=== PATIENT | male | born 1995 | race Caucasian/White ===

== ENCOUNTER 2020-11-22 10:57 | Emergency (ER) | payer OTHER ==
[2020-11-22 11:55] LABS: HEMOGLOBIN 16.9 gm/dl (14.0-17.5); RED BLOOD COUNT 5.98 M/UL (4.20-5.50); WHITE BLOOD COUNT 11.6 K/UL (4.5-11.0)
[2020-11-22 12:38] LABS: BUN/CREATININE RATIO 17 (0-10)
== END 2020-11-22 15:14 | disposition home or self-care (01) ==
LOC: ER1 10:57
PROVIDERS: Nurse Practitioner
DX: R10.13 Epigastric pain (principal); R07.9 Chest pain, unspecified; E10.10 Type 1 diabetes mellitus with ketoacidosis without coma; Z79.899 Other long term (current) drug therapy
CPT/HCPCS: 71045; 80053; 81001; 82009; 82550; 82553; 82803; 82962; 83605; 83690; 83874; 84484; 85025; 93005; 96374; 96375; 99285; J1885; J2405